=== PATIENT | female | born 1960 | race Caucasian/White ===

== ENCOUNTER 2023-04-29 12:04 | Emergency (ER) | payer BC ==
[~2023-04-29] VITALS: Ht 152.4 cm; Wt 79.4 kg
[2023-04-29] MEDS ORDERED: LIPITOR20 MG PO (12:31)
[2023-04-29] MEDS ORDERED: ASPIRIN ADULT L81 M1 PO (12:31)
[2023-04-29] MEDS ORDERED: LOSARTAN POTASS25 M1 PO (12:32)
[2023-04-29] MEDS ORDERED: METFORMIN XR500 MG PO (12:32)
[2023-04-29] MEDS ORDERED: METOPROLOL SUCC50 M1 PO (12:32)
[2023-04-29] MEDS ORDERED: TRULICITY0.75 MG/0. SC (12:33)
[2023-04-29 12:35] LABS: BASO % 0.3 % (0.0-1.0); EOS % 0.7 % (1.0-4.0); LYMPH # 1.8 10*3/uL (1.3-4.4); LYMPH % 30.7 % (27.0-41.0); MEAN CELL VOLUME 86.1 fl (81.0-99.0); MEAN CORPUSCULAR HGB 27.5 pg (27.0-31.0); MEAN PLATELET VOLUME 10.1 fl (9.6-12.3); MONO # 0.3 10*3/uL (0.1-1.0); MONO % 5.1 % (3.0-9.0); NEUT # 3.7 10*3/uL (2.3-7.9); NEUT % 62.9 % (47.0-73.0); PLATELET COUNT AUTOMATED 168 10*3/uL (130-400); RED BLOOD COUNT 4.76 10*6/uL (4.10-5.10); RED CELL DISTRI WIDTH 13.1 % (0-14.5); WHITE BLOOD COUNT 5.9 10*3/uL (4.8-10.8)
[2023-04-29 12:56] LABS: ALKALINE PHOSPHATASE 76 U/L (46-116); BUN 13 mg/dl (9-23); CHLORIDE 107 mmol/L (98-107); POTASSIUM 3.9 mmol/L (3.4-5.1); SGPT/ALT 17 U/L (5-49)
== END 2023-04-29 15:58 | disposition home or self-care (01) ==
LOC: ED 12:04
PROVIDERS: Family Medicine
DX: R07.89 Other chest pain (principal); E11.9 Type 2 diabetes mellitus without complications; Z91.040 Latex allergy status